=== PATIENT | female | born 2000 | race Caucasian/White ===

== ENCOUNTER 2019-05-13 23:01 | Emergency (ER) | payer SELFPAY ==
--- NOTE | 2019-05-13 23:26 | ED ---
Lower Extremity - HPI Summary HPI Summary: 19 yo female presents with toe pain. She tells me that this morning her friend stepped on her bare left 4th toe. Since that time has noticed bruising and mild pain. The bruising concerned her - prompting her visit to the ED. She has not taken anything OTC for discomfort. She is ambulatory without assistance. Denies numbness or tingling - History of Current Complaint Chief Complaint: EDExtremityLower Stated Complaint: BRUISED TOE PER PT Time Seen by Provider: 05/13/19 23:26 Hx Obtained From: Patient Severity Initially: Moderate Severity Currently: Moderate Pain Intensity: 5 Pain Scale Used: 0-10 Numeric - Allergies/Home Medications Allergies/Adverse Reactions: Allergies Allergy/AdvReac Type Severity Reaction Status Date / Time No Known Allergies Allergy Verified 05/13/19 23:12 PMH/Surg Hx/FS Hx/Imm Hx Endocrine/Hematology History: Denies: Hx Diabetes, Hx Systemic Lupus Erythematosus Cardiovascular History: Denies: Hx Hypertension Respiratory History: Denies: Hx Asthma, Hx Chronic Obstructive Pulmonary Disease (COPD) - Surgical History Surgical History: None - Immunization History Immunizations Up to Date: Yes Infectious Disease History: No Infectious Disease History: Denies: Traveled Outside the [place] in Last 30 Days - Family History Known Family History: Positive: None - Social History Occupation: Student Lives: Dormitory/Roommates Alcohol Use: Occasionally Substance Use Type: Reports: None Smoking Status (MU): Never Smoked Tobacco Review of Systems Constitutional: Negative Cardiovascular: Negative Respiratory: Negative Gastrointestinal: Negative Genitourinary: Negative Musculoskeletal: Other - left 4th toe pain Positive: Bruising Neurological: Negative Psychological: Normal All Other Systems Reviewed And Are Negative: No Physical Exam - Summary Physical Exam Summary: GENERAL: NAD. WDWN. No pain distress. SKIN: LEFT 4th toe mild ecchymosis about medial aspect CHEST: No accessory muscle use. Breathing comfortably and in no distress. CV: Pulses intact PT and DP. Cap refill <2seconds MSK: LEFT 4th toe: FROM. NTTP. Strength 5/5. NEURO: Alert. Sensations intact and symmetric B/L LEs PSYCH: Age appropriate behavior. Triage Information Reviewed: Yes Vital Signs On Initial Exam: Initial Vitals Temp Pulse Resp BP Pulse Ox 98.8 F 92 16 126/84 99 05/13/19 23:12 05/13/19 23:12 05/13/19 23:12 05/13/19 23:12 05/13/19 23:12 Vital Signs Reviewed: Yes Procedures - Sedation Patient Received Moderate/Deep Sedation with Procedure: No Diagnostics - Vital Signs Vital Signs Temp Pulse Resp BP Pulse Ox 05/13/19 23:12 98.8 F 92 16 126/84 99 - Laboratory Lab Statement: Any lab studies that have been ordered have been reviewed, and results considered in the medical decision making process. - Radiology toe XR Radiology Interpretation Completed By: ED Physician Summary of Radiographic Findings: No fx Lower Extremity Course/Dx - Course Course Of Treatment: Suspect contusion of toe. Advised to RICE and take tylenol/ ibuprofen for discomfort as directed - Diagnoses Provider Diagnoses: Toe contusion Discharge ED - Sign-Out/Discharge Documenting (check all that apply): Patient Departure - Discharge Plan Condition: Stable Disposition: HOME Patient Education Materials: Foot Contusion (ED) Referrals: No Primary Care Phys,NOPCP [Primary Care Provider] - Additional Instructions: If you develop a fever, shortness of breath, chest pain, new or worsening symptoms - please call your PCP or go to the ED immediately. Rest, ice, and elevate your toe to reduce pain and swelling - Billing Disposition and Condition Condition: STABLE Disposition: Home
[2019-05-14 00:48] VITALS: BP 106/65
== END 2019-05-14 00:20 | disposition home or self-care (01) ==
LOC: ED 23:01
DX: S90.122A Contusion of left lesser toe(s) without damage to nail, initial encounter (principal); W50.0XXA Accidental hit or strike by another person, initial encounter; Y92.9 Unspecified place or not applicable
CPT/HCPCS: 99282